=== PATIENT | male | born 2000 | race Two or more races ===

== ENCOUNTER 2025-04-11 16:01 | Emergency (ER) | payer SELFPAY ==
[~2025-04-11] VITALS: Ht 170.2 cm; Wt 71.3 kg
[2025-04-11 16:07] VITALS: BP 124/69; PULSE 78; RESP 18; TEMP 97.9; O2SAT 100
== END 2025-04-11 16:31 | disposition left against medical advice (07) ==
LOC: EMS 16:01
DX: S61.219A Laceration without foreign body of unspecified finger without damage to nail, initial encounter (principal); Z53.21 Procedure and treatment not carried out due to patient leaving prior to being seen by health care provider; X58.XXXA Exposure to other specified factors, initial encounter; Y93.89 Activity, other specified; Y92.89 Other specified places as the place of occurrence of the external cause; Y99.8 Other external cause status
CPT/HCPCS: 99281; Z7502